=== PATIENT | female | born 1935 | race African-American/Black ===

== ENCOUNTER 2016-12-19 09:16 | Inpatient (IN) | payer MEDICARE, OTHER ==
[2016-12-19] VITALS (34 sets, daily range): BP systolic 94–172; BP diastolic 50–140
[~2016-12-19] VITALS: Ht 165.1 cm; Wt 82.6 kg
[~2016-12-19 09:16] MED LIST: ALBU2.5V13 NEB; ASPI-1159 PO; COR6 PO; DOCU-150 PO; FURO40TA5 PO; LISI-186 PO; PREG75CA PO; UMEC1DIS IH
[2016-12-19] MEDS ORDERED: NITROGLYCERIN 50MG PREMIX 250 ML IV ONE (09:30)
[2016-12-19] MEDS ORDERED: FUROSEMIDE 100MG/10ML VIAL IVP ONE (09:45)
[2016-12-19 09:52] LABS: BG BASE EXCESS -6.1 mmol/L (-2.0-2.0); BG BILEVEL POS AIRWAY PRESSURE 15/5; BG CARBOXYHEMOGLOBIN 0.4 % (0.5-1.5); BG DEOXYHEMOGLOBIN 2.5 % (0.0-5.0); BG FRACTION INSPIRED OXYGEN 40; BG METHEMOGLOBIN 0.3 % (0.0-1.5); BG OXYGEN SATURATION 97.5 % (92.0-98.5); BG OXYHEMOGLOBIN 96.8 % (94.0-97.0); BG PCO2 36.5 mmHg (35.0-45.0); BG PH 7.335 (7.350-7.450); BG SAMPLE SITE RIGHT BRACHIAL; BG TOTAL HEMOGLOBIN 13.2 g/dL (12.0-18.0); BG VENT MODE MASK - BIPAP; BG VENT RATE 16 set
[2016-12-19 09:53] LABS: HEMATOCRIT. 37.6 % (36.0-48.0); HEMOGLOBIN. 12.4 g/dL (12.0-16.0); MEAN CORPUSCULAR HEMOGLOBIN 28.6 pg (28.0-32.0); MEAN PLATELET VOLUME 9.4 fl (7.4-10.4); PLATELET 167 x1000/uL (130-400); RED BLOOD CELL COUNT 4.33 mill/uL (4.2-5.4); RED CELL DISTRIBUTION WIDTH 17.8 % (11.6-14.6)
[2016-12-19 10:00] LABS: PROTHROMBIN TIME 10.7 sec (9.4-11.6)
[2016-12-19 10:02] LABS: CARBON DIOXIDE 24 mEq/L (21-32); CHLORIDE 110 mEq/L (98-107)
[2016-12-19 10:08] LABS: TROPONIN I 0.33 ng/mL (0.00-0.04)
[2016-12-19 10:37] LABS: CLARITY URINE CLEAR (CLEAR); COLOR URINE YELLOW (YELLOW); GLUCOSE URINE NEGATIVE (NEGATIVE); KETONES URINE NEGATIVE (NEGATIVE); LEUKOCYTE ESTERASE URINE NEGATIVE (NEGATIVE); NITRITE URINE NEGATIVE (NEGATIVE); OCCULT BLOOD URINE TRACE (NEGATIVE); PH URINE 6.5 (4.5-8.0); PROTEIN URINE 3+ (NEGATIVE); SPECIFIC GRAVITY URINE 1.011 (1.005-1.030)
[2016-12-19 10:38] LABS: PLATELET ESTIMATE NORMAL
[2016-12-19] MEDS ORDERED: CLONIDINE 0.1MG TABLET PO PRN (16:00)
[2016-12-19] MEDS ORDERED: IPRATROPIUM/ALBUTEROL 0.5-3(2.5)MG/3ML NEB INH PRN (16:00)
[2016-12-19] MEDS ORDERED: DIPHENHYDRAMINE 50MG/ML VIAL IV PRN (16:00)
[2016-12-19] MEDS ORDERED: LORAZEPAM 2MG/ML CPJ IV PRN (16:00)
[2016-12-19] MEDS ORDERED: MAGNESIUM/ALUMINUM HYDROXIDE/SIMETHICONE 30ML UDC PO PRN (16:00)
[2016-12-19] MEDS ORDERED: ACETAMINOPHEN 325MG TABLET PO PRN (16:00)
[2016-12-19] MEDS ORDERED: ONDANSETRON HCL 4MG/2ML VIAL IV PRN (16:00)
[2016-12-19] MEDS ORDERED: HYDRALAZINE 20MG/ML VIAL IV PRN (17:01)
[2016-12-19] MEDS: ENOXAPARIN 40MG/0.4ML SYR SUBCUT SCH (17:46)
[2016-12-19] MEDS: METHYLPREDNISOLONE SOD SUCC 40 MG/ML VIAL IV SCH (17:46)
[2016-12-19] MEDS: FUROSEMIDE 40MG/4ML VIAL IVP SCH (17:47)
[2016-12-19] MEDS: BLOOD SUGAR DIAGNOSTIC STRIP TEST SCH ×2 (17:59→21:23)
[2016-12-19] MEDS: INSULIN LISPRO 100 UNITS/ML SUBCUT SCH ×2 (18:00→21:00)
[2016-12-19] MEDS ORDERED: DEXTROSE 50% WATER 50ML SYRINGE IV PRN (18:00)
[2016-12-19] MEDS ORDERED: CARV12.545 PO (19:06)
[2016-12-19] MEDS ORDERED: LIP40 PO (19:06)
[2016-12-19] MEDS ORDERED: FAMO20TA8 PO (19:11)
[2016-12-19] MEDS ORDERED: LISI10TA5 PO (19:11)
[2016-12-19] MEDS ORDERED: FURO40TA5 PO (19:11)
[2016-12-19] MEDS ORDERED: AMLO5TAB88 PO (19:11)
[2016-12-19] MEDS ORDERED: NAPR220T66 PO (19:15)
[2016-12-19] MEDS ORDERED: FLUT1BLS IH (19:15)
[2016-12-19] MEDS: ATORVASTATIN CALCIUM 40MG TABLET PO SCH (20:49)
[2016-12-19] MEDS: CARVEDILOL 12.5MG TABLET PO SCH (20:50)
[2016-12-19] MEDS: FAMOTIDINE 20MG TABLET PO SCH (20:50)
[2016-12-19] MEDS: SODIUM CHLORIDE 0.9% INJ 3ML FLUSH IVF SCH (21:24)
[2016-12-20] VITALS (55 sets, daily range): BP systolic 111–185; BP diastolic 57–141
[2016-12-20] MEDS: METHYLPREDNISOLONE SOD SUCC 40 MG/ML VIAL IV SCH ×3 (01:48→17:35)
[2016-12-20] MEDS: FUROSEMIDE 40MG/4ML VIAL IVP SCH ×2 (06:12→17:34)
[2016-12-20] MEDS: SODIUM CHLORIDE 0.9% INJ 3ML FLUSH IVF SCH ×3 (06:12→22:21)
[2016-12-20] MEDS: INSULIN LISPRO 100 UNITS/ML SUBCUT SCH ×4 (06:19→20:38)
[2016-12-20] MEDS: BLOOD SUGAR DIAGNOSTIC STRIP TEST SCH ×4 (06:19→20:38)
[2016-12-20 06:30] LABS: BASOPHILS % 0.3 % (0.0-2.0); HEMATOCRIT. 35.5 % (36.0-48.0); HEMOGLOBIN. 11.9 g/dL (12.0-16.0); LYMPHOCYTES % 11.9 % (20.0-50.0); MEAN CORPUSCULAR HEMOGLOBIN 28.7 pg (28.0-32.0); MEAN CORPUSCULAR VOLUME 85.7 fL (81.0-99.0); MEAN PLATELET VOLUME 9.4 fl (7.4-10.4); MONOCYTES % 5.8 % (2.0-8.0); PLATELET 140 x1000/uL (130-400); RED BLOOD CELL COUNT 4.14 mill/uL (4.2-5.4)
[2016-12-20 06:58] LABS: TROPONIN I 0.17 ng/mL (0.00-0.04)
[2016-12-20] MEDS: ASPIRIN 81MG TABLET PO SCH (09:33)
[2016-12-20] MEDS: AMLODIPINE 5MG TABLET PO SCH (09:34)
[2016-12-20] MEDS: CARVEDILOL 12.5MG TABLET PO SCH ×2 (09:36→20:37)
[2016-12-20] MEDS: LISINOPRIL 10MG TABLET PO SCH (09:36)
[2016-12-20] MEDS: ENOXAPARIN 40MG/0.4ML SYR SUBCUT SCH (17:34)
[2016-12-20] MEDS: ATORVASTATIN CALCIUM 40MG TABLET PO SCH (20:36)
[2016-12-20] MEDS: FAMOTIDINE 20MG TABLET PO SCH (20:37)
[2016-12-20] MEDS: IPRATROPIUM/ALBUTEROL 0.5-3(2.5)MG/3ML NEB HHN SCH ×2 (21:26→23:55)
[2016-12-21] VITALS (11 sets, daily range): BP systolic 105–139; BP diastolic 56–86
[2016-12-21] MEDS: METHYLPREDNISOLONE SOD SUCC 40 MG/ML VIAL IV SCH ×3 (03:25→20:51)
[2016-12-21] MEDS: IPRATROPIUM/ALBUTEROL 0.5-3(2.5)MG/3ML NEB HHN SCH ×5 (04:00→20:30)
[2016-12-21] MEDS: BLOOD SUGAR DIAGNOSTIC STRIP TEST SCH ×4 (05:50→21:00)
[2016-12-21] MEDS: FUROSEMIDE 40MG/4ML VIAL IVP SCH (06:06)
[2016-12-21] MEDS: SODIUM CHLORIDE 0.9% INJ 3ML FLUSH IVF SCH ×3 (06:06→22:31)
[2016-12-21 07:07] LABS: HEMATOCRIT. 34.8 % (36.0-48.0); HEMOGLOBIN. 11.5 g/dL (12.0-16.0); MEAN CORPUSCULAR HEMOGLOBIN 28.5 pg (28.0-32.0); MEAN CORPUSCULAR VOLUME 86.1 fL (81.0-99.0); MEAN PLATELET VOLUME 9.4 fl (7.4-10.4); PLATELET 139 x1000/uL (130-400); RED BLOOD CELL COUNT 4.05 mill/uL (4.2-5.4); RED CELL DISTRIBUTION WIDTH 18.3 % (11.6-14.6)
[2016-12-21] MEDS: AMLODIPINE 5MG TABLET PO SCH (08:05)
[2016-12-21] MEDS: ASPIRIN 81MG TABLET PO SCH (08:05)
[2016-12-21] MEDS: LISINOPRIL 10MG TABLET PO SCH (08:05)
[2016-12-21] MEDS: INSULIN LISPRO 100 UNITS/ML SUBCUT SCH ×4 (08:06→20:52)
[2016-12-21] MEDS: CARVEDILOL 12.5MG TABLET PO SCH ×2 (08:40→20:51)
[2016-12-21] MEDS: ENOXAPARIN 40MG/0.4ML SYR SUBCUT SCH (18:03)
[2016-12-21 18:25] LABS: PLATELET ESTIMATE NORMAL
[2016-12-21] MEDS: FUROSEMIDE 40MG TABLET PO SCH (20:51)
[2016-12-21] MEDS: FAMOTIDINE 20MG TABLET PO SCH (20:51)
[2016-12-21] MEDS: ATORVASTATIN CALCIUM 40MG TABLET PO SCH (20:51)
[2016-12-22] VITALS: BP 118/58
[2016-12-22] MEDS: IPRATROPIUM/ALBUTEROL 0.5-3(2.5)MG/3ML NEB HHN SCH ×5 (01:42→15:40)
[2016-12-22 04:00] VITALS: BP 116/58
[2016-12-22] MEDS: SODIUM CHLORIDE 0.9% INJ 3ML FLUSH IVF SCH (06:34)
[2016-12-22] MEDS: BLOOD SUGAR DIAGNOSTIC STRIP TEST SCH ×2 (07:40→12:40)
[2016-12-22 08:00] VITALS: BP 147/75
[2016-12-22] MEDS: INSULIN LISPRO 100 UNITS/ML SUBCUT SCH ×2 (08:10→13:10)
[2016-12-22] MEDS: CARVEDILOL 12.5MG TABLET PO SCH (08:56)
[2016-12-22] MEDS: FUROSEMIDE 40MG TABLET PO SCH (08:56)
[2016-12-22] MEDS: LISINOPRIL 10MG TABLET PO SCH (08:56)
[2016-12-22] MEDS: ASPIRIN 81MG TABLET PO SCH (08:56)
[2016-12-22] MEDS: AMLODIPINE 5MG TABLET PO SCH (08:57)
[2016-12-22] MEDS: FLUTICASONE/VILANTEROL 200-25 BLST.W.DEV ORI SCH ×2 (08:58→09:00)
[2016-12-22] MEDS: METHYLPREDNISOLONE SOD SUCC 40 MG/ML VIAL IV SCH (10:08)
[2016-12-22 12:00] VITALS: BP 135/78
[2016-12-22 16:00] VITALS: BP 129/80
== END 2016-12-22 18:40 | disposition home or self-care (01) | DRG 291 ==
LOC: ER 09:16 → MICUSO 10:34 → ENRESERV 12:31 → CANRESERV 12:31 → EDBEDREQSVC 12:34 → EDBEDREQ 13:24 → EDBEDREQSVC 15:46 → ENRESERV 15:47 → 7WST 12-21 03:17
PROVIDERS: ADMIT Internal Medicine; ATTEND Internal Medicine
PROC: 5A09357 Assistance with Respiratory Ventilation, Less than 24 Consecutive Hours, Continuous Positive Airway Pressure (ICD-10-PCS; principal; 2016-12-19)
DX: I13.0 Hypertensive heart and chronic kidney disease with heart failure and stage 1 through stage 4 chronic kidney disease, or unspecified chronic kidney disease (principal); I50.43 Acute on chronic combined systolic (congestive) and diastolic (congestive) heart failure; J96.00 Acute respiratory failure, unspecified whether with hypoxia or hypercapnia; N17.9 Acute kidney failure, unspecified; E87.2 Acidosis; J44.1 Chronic obstructive pulmonary disease with (acute) exacerbation; D72.829 Elevated white blood cell count, unspecified; E11.22 Type 2 diabetes mellitus with diabetic chronic kidney disease; E66.9 Obesity, unspecified; E78.5 Hyperlipidemia, unspecified; H26.9 Unspecified cataract; I25.10 Atherosclerotic heart disease of native coronary artery without angina pectoris; E11.51 Type 2 diabetes mellitus with diabetic peripheral angiopathy without gangrene; I83.90 Asymptomatic varicose veins of unspecified lower extremity; N18.9 Chronic kidney disease, unspecified; Z79.82 Long term (current) use of aspirin; Z79.899 Other long term (current) drug therapy; Z87.891 Personal history of nicotine dependence; Z95.1 Presence of aortocoronary bypass graft; Z90.710 Acquired absence of both cervix and uterus
CPT/HCPCS: 36415; 36600; 51702; 71010; 80048; 80053; 81001; 82375; 82805; 82962; 83036; 83605; 83735; 83880; 84484; 85025; 85610; 93005; 93306; 93970; 94640; 94660; 94664; 96374; 97116; 97161; 97165; 99285; A6261; J0360; J1650; J1815; J1940; J2405; J2920; J3490; J7050; J7620